=== PATIENT | male | born 2000 | race Two or more races ===

== ENCOUNTER 2020-07-14 11:05 | Emergency (ER) | payer SELFPAY ==
[~2020-07-14] VITALS: Ht 175.3 cm; Wt 103.0 kg
[2020-07-14 11:17] VITALS: BP 131/83
[2020-07-14 12:04] LABS: BASOPHILS % (AUTO) 1 % (0-1); EOSINOPHILS % (AUTO) 2 % (1-7); LYMPHOCYTES % (AUTO) 33 % (22-44); MEAN CORPUSCULAR HEMOGLOBIN 31.1 pg (27.5-34.5); MEAN CORPUSCULAR HGB CONC 33.7 g/dL (33.2-36.2); MEAN PLATELET VOLUME 9.4 fL (7.4-10.4); MONOCYTES % (AUTO) 9 % (2-9); NEUTROPHILS % (AUTO) 55 % (42-75); PLATELET COUNT 238 x10^3/uL (130-400); RED BLOOD COUNT 5.24 x10^6/uL (4.38-5.82)
[2020-07-14 12:10] LABS: MD NO
[2020-07-14 12:18] LABS: ANION GAP 7 mmol/L (5-15); CALCIUM 9.6 mg/dL (8.5-10.1); CHLORIDE 108 mmol/L (98-107); CREATININE 0.84 mg/dL (0.7-1.3)
[2020-07-14 12:19] LABS: ALANINE AMINOTRANSFERASE 168 U/L (12-78); ALBUMIN 4.5 g/dL (3.4-5.0); ALKALINE PHOSPHATASE 81 U/L (45-117); BILIRUBIN,TOTAL 0.8 mg/dL (0.2-1.0); TOTAL PROTEIN 8.5 g/dL (6.4-8.2)
--- NOTE | 2020-07-14 14:17 | NUR ---
[employer]: NO ANSWER X 1
--- NOTE | 2020-07-14 15:18 | NUR ---
NO ANSWER IN LOBBY
--- NOTE | 2020-07-14 15:49 | NUR ---
no answer in lobby
== END 2020-07-14 15:50 | disposition left against medical advice (07) ==
LOC: ED 15:44
DX: R05 Cough (principal); R51.9 Headache, unspecified; R43.9 Unspecified disturbances of smell and taste
CPT/HCPCS: 36415; 80053; 85025; 99283